=== PATIENT | female | born 1990 | race Caucasian/White ===

== ENCOUNTER → 2017-10-09 | Outpatient (CLI) | payer OTHER | LOC: HPND 09:18 | DX: O43.892 Other placental disorders, second trimester (principal); O09.32 Supervision of pregnancy with insufficient antenatal care, second trimester; O34.211 Maternal care for low transverse scar from previous cesarean delivery; O44.42 Low lying placenta NOS or without hemorrhage, second trimester | CPT/HCPCS: 76805 ==

== ENCOUNTER → 2017-11-21 | Outpatient (CLI) | payer OTHER | LOC: HPND 12:11 | PROVIDERS: ATTEND Obstetrics & Gynecology | DX: Z36.2 Encounter for other antenatal screening follow-up (principal); O09.32 Supervision of pregnancy with insufficient antenatal care, second trimester; O44.42 Low lying placenta NOS or without hemorrhage, second trimester | CPT/HCPCS: 76816 ==

== ENCOUNTER 2017-12-12 09:10 | Inpatient (IN) ==
[2017-12-12] MEDS ORDERED: Mag Sulf/Water 4 gm/100 ml 100 ML IV.SIG ONE ×2 (09:54→10:38)
[2017-12-12] MEDS ORDERED: ceFAZolin Inj 2,000 MG in Sodium Chlor 0.9% Inj 80 ML IV.SIG ONE (09:54)
[2017-12-12] MEDS ORDERED: Acetaminophen 325 MG Tablet PO PRN (09:54)
[2017-12-12] MEDS ORDERED: Mag Sulf/Water 40 gm/1000 ml 40 GM/1,000 ML BAG IV.CONT SCH (10:00)
[2017-12-12 10:37] LABS: Baso % (Auto) 0.2 % (0.0-2.0); Eos # (Auto) 0.1 th/mm3 (0.0-0.4); Eos % (Auto) 0.6 % (0.0-4.0); Hematocrit 30.2 % (35.0-46.0); Hemoglobin 10.4 gm/dL (11.6-15.3); Lymph # (Auto) 1.8 th/mm3 (1.0-4.8); Lymph % (Auto) 11.9 % (9.0-44.0); Mean Corpuscular HGB Conc 34.3 % (32.0-36.0); Mean Corpuscular Hemoglobin 32.1 pg (27.0-34.0); Mean Corpuscular Volume 93.7 fL (80.0-100.0); Mean Platelet Volume 8.7 fL (7.0-11.0); Mono # (Auto) 0.8 th/mm3 (0.0-0.9); Mono % (Auto) 5.4 % (0.0-8.0); Neut # (Auto) 12.4 th/mm3 (1.8-7.7); Neut % (Auto) 81.9 % (16.0-70.0); Platelet Count 180 th/mm3 (150-450); Red Blood Count 3.22 mil/mm3 (4.00-5.30); Red Cell Distribution Width 12.8 % (11.6-17.2); White Blood Count 15.1 th/mm3 (4.0-11.0)
[2017-12-12] MEDS ORDERED: Mag Sulf/Water 40 gm/1000 ml 40 GM/1,000 ML BAG IV.CONT ONE (10:38)
--- NOTE | 2017-12-12 10:38 | ED ---
History of Present Illness Primary Care Physician: UNKNOWN Chief Complaint: vaginal bleeding History of Present Illness: Ms Carrera is a 27 YO followed by [facility] with Hx of 1 2007, 1 ectopic s/p left salpingoophorectomy 2010, and 1 presents at 28/2 weeks with vaginal bleeding since this morning. Pt reports painless bleeding started about 7AM and is about the same as a period without gush of fluid and good movement. There is no report of trauma; last sexual intercourse 2 days ago. Pt reports no complications with this . OB US on 11/20 indicates breech lie with no previa but that posterior grade 1 placenta which was previously low lying had resolved. Denies CP, SOB, N/V/D, cramping and DVT pain. Weeks Gestation:: 28 Para: 1 : 4 Total # of Abortions (Spontaneous & Elective): 1 - Inpatient Certification If this patient has been admitted as an Inpatient: I certify that the inpatient services were ordered in accordance with Medicare regulations governing the order. This includes certification that hospital inpatient services are reasonable and necessary and in the case of services not specified as inpatient-only under 42 CFR 419.22(n), that they are appropriately provided as inpatient services in accordance to with the 2-midnight benchmark under 43 CFR 412.3(e) Estimated Total Length of Stay (Days): 2 Plans for Post Hospital Care: Home Review of Systems Constitutional: Denies chills, Denies fever(s) Eyes: Denies change in vision Cardiovascular: Denies chest pain, Denies shortness of breath with activity Respiratory: Denies shortness of breath Gastrointestinal: Denies abdominal pain, Denies loose stools, Denies nausea, Denies vomiting Genitourinary: Reports abnormal vaginal bleeding (since approx 7AM), Denies vaginal discharge Musculoskeletal: Reports back pain (mild) Skin/Breast: Denies lesions, Denies rash PMFSH - Medical / Surgical Hx Neg / Unobtainable Medical Problems Denied: Yes - Medical History Medical History: Medical History (Last Updated 12/12/17 @ 10:23 by Oni Schwarz III, MD, R1) delivery delivered - Surgical History Surgical History: Surgical History (Last Updated 12/12/17 @ 10:22 by Oni Schwarz III, MD, R1) History of salpingoophorectomy - Family History Family History: Family History (Last Updated 12/12/17 @ 10:23 by Oni Schwarz III, MD, R1) Other Diabetes - Tobacco History Second Hand Smoke Exposure: No Tobacco Use In Past 30 Days: No Smoking Status: Unknown if ever smoked - Alcohol History How Often Do You Have a Drink Containing Alcohol: Never - Substance Use History Substance History: No History of Abuse - Travel History History of Recent Travel: No Recent Travel in the [place] Within the Last 8 Weeks: No Recent Travel Out of the Country Within the Last 8 Weeks: No Medications and Allergies Active Medications: Active Medications Acetaminophen (Tylenol) 650 mg PO Q4H PRN PRN Reason: PAIN SCALE 1 TO 10 Betamethasone Acet/Betameth SodPhos (Celestone Soluspan Inj) 12 mg IM Q24H ANTHONY Stop: 12/13/17 10:01 Calcium Gluconate (Calcium Gluconate Inj) 1 gm IV.PUSH ONCE PRN PRN Reason: Magnesium Toxicity Cefazolin Sodium 2,000 mg/ (Sodium Chloride) 100 mls @ 200 mls/hr IV.SIG ONCE ONE Stop: 12/12/17 10:23 Lactated Ringer's (Lr 1000 Ml Inj) 1,000 mls @ 125 mls/hr IV.CONT .Q8H ANTHONY Magnesium Sulfate (Magnesium Sulfate/Water 4 Gm/100 Ml Premix) 100 mls @ 300 mls/hr IV.SIG ONCE ONE Stop: 12/12/17 10:13 Magnesium Sulfate (Magnesium Sulfate/Water 40 Gm/1000 Ml Premix) 40 gm in 1, 000 mls @ 50 mls/hr IV.CONT Q24H ANTHONY Sodium Chloride (Ns Flush) 2 ml IV.FLUSH BID ANTHONY Sodium Chloride (Ns Flush) 2 ml IV.FLUSH PRN PRN PRN Reason: FLUSH AFTER USING IV ACCESS Allergies Allergy/AdvReac Type Severity Reaction Status Date / Time No Known Allergies Allergy Uncoded 05/28/16 04:26 Home Medications Medication Instructions Recorded Confirmed Type No Known Home Medications 12/12/17 12/12/17 History Exam Vital signs: Vital Signs 12/12/17 09:35 Temperature 98.7 F Pulse Rate 109 H Respiratory Rate 18 Blood Pressure 108/74 Intake & Output 12/11/17 12/12/17 12/12/17 18:59 06:59 18:59 Weight 124 kg Narrative: GENERAL: Well-nourished, well-developed patient. SKIN: Warm and dry. HEAD: Normocephalic and atraumatic. EYES: No scleral icterus. No injection or drainage. ENT: No nasal drainage noted. Mucous membranes pink. Airway patent. Poor dentition. NECK: Supple, trachea midline. No JVD. CARDIOVASCULAR: Regular rate and rhythm without murmurs, gallops, or rubs. RESPIRATORY: Breath sounds equal bilaterally. No accessory muscle use. ABDOMEN/GI: Abdomen soft, non-tender, bowel sounds present, no rebound, no guarding Gravid to 28 weeks size GENITOURINARY: External Genitalia: intact and normal in appearance. There is dried blood around the pt's vagina and anus. Internal genitalia: cervix is high and anterior with cervix fingertip open and oozing blood; there is blood in the vaginal vault. Cervix: open Dilatation: fingertip Effacement: - Station: - Presentation: - Membranes: intact Uterine Contractions: absent FHT's: Category: 1 Baseline: 135 Reactive: yes Variability: moderate Decels: absent EXTREMITIES: No cyanosis or edema. BACK: Nontender without obvious deformity. No CVA tenderness. NEUROLOGICAL: Awake and alert. Motor and sensory grossly within normal limits. Five out of 5 muscle strength in all muscle groups. Normal speech. Assessment and Plan - Diagnosis (1) Third trimester bleeding, antepartum Code(s): O46.93 - Antepartum hemorrhage, unspecified, third trimester Status: Acute Plan: 27 YO followed by CFW with Hx of 1 2007, 1 ectopic s/p left salpingoophorectomy 2010, and 1 presents at 28/2 weeks with vaginal bleeding since this morning. Concern for possible abruption vs cervical incompetence. Admit for observation overnight. PLAN: -Labs: CBC, Coag profile, UA -OB US stat -Mag sulfate per protocol -Ancef IV 2g -Betamethasone 12mg IM q24h x2 doses -LR IVF -PRN tylenol, zofran Pt SDW Nina Vargas and Geo Discharge Plan - Discharge Disposition Patient Disposition: 02 Transfer To [facility] [place] - Discharge Condition Condition: Stable - Physicians Team Primary Care Provider: UNKNOWN, Attending Provider: Liza Carl
[2017-12-12 11:07] LABS: Amphetamine Urine With Conf Neg (Neg); Benzodiazepine Urine With Conf Neg (Neg)
[2017-12-12] MEDS: Betamethasone Sod Phos/Acetate Inj 30 MG/5 ML Vial IM SCH (11:10)
[2017-12-12] MEDS ORDERED: ceFAZolin 2 GM Premix Inj 2 GM/100 ML BAG IV.SIG ONE (12:00)
[2017-12-12 13:18] LABS: Amphetamine Urine With Conf Neg (Neg); Benzodiazepine Urine With Conf Neg (Neg)
[2017-12-12 13:20] LABS: INR 0.9 Ratio; Prothrombin Time 9.2 sec (9.8-11.6)
[2017-12-12 16:22] LABS: Hematocrit 30.1 % (35.0-46.0)
--- NOTE | 2017-12-12 18:25 | P.HPOB ---
Chief Complaint: vaginal bleeding History of Present Illness: Ms Carrera is a 27 YO followed by CFW with Hx of 1 2007, 1 ectopic s/p left salpingoophorectomy 2010, and 1 presents at 28/2 weeks with vaginal bleeding since this morning. Pt reports painless bleeding started about 7AM and is about the same as a period without gush of fluid and good movement. There is no report of trauma; last sexual intercourse 2 days ago. Pt reports no complications with this . OB US on 11/20 indicates breech lie with no previa but that posterior grade 1 placenta which was previously low lying had resolved. Denies CP, SOB, N/V/D, cramping and DVT pain. Weeks Gestation:: 28 Para: 1 : 4 Total # of Abortions (Spontaneous & Elective): 1 - Inpatient Certification If this patient has been admitted as an Inpatient: I certify that the inpatient services were ordered in accordance with Medicare regulations governing the order. This includes certification that hospital inpatient services are reasonable and necessary and in the case of services not specified as inpatient-only under 42 CFR 419.22(n), that they are appropriately provided as inpatient services in accordance to with the 2-midnight benchmark under 43 CFR 412.3(e) Estimated Total Length of Stay (Days): 2 Plans for Post Hospital Care: Home Review of Systems Constitutional: Denies chills, Denies fever(s) Eyes: Denies change in vision Cardiovascular: Denies chest pain, Denies shortness of breath with activity Respiratory: Denies shortness of breath Gastrointestinal: Denies abdominal pain, Denies loose stools, Denies nausea, Denies vomiting Genitourinary: Reports abnormal vaginal bleeding (since approx 7AM), Denies vaginal discharge Musculoskeletal: Reports back pain (mild) Skin/Breast: Denies lesions, Denies rash PMFSH - Medical / Surgical Hx Neg / Unobtainable Medical Problems Denied: Yes - Medical History Medical History: Medical History (Last Updated 12/12/17 @ 10:23 by Oni Schwarz III, MD, R1) delivery delivered - Surgical History Surgical History: Surgical History (Last Updated 12/12/17 @ 10:22 by Oni Schwarz III, MD, R1) History of salpingoophorectomy - Family History Family History: Family History (Last Updated 12/12/17 @ 10:23 by Oni Schwarz III, MD, R1) Other Diabetes - Tobacco History Second Hand Smoke Exposure: No Tobacco Use In Past 30 Days: No Smoking Status: Unknown if ever smoked - Alcohol History How Often Do You Have a Drink Containing Alcohol: Never - Substance Use History Substance History: No History of Abuse - Travel History History of Recent Travel: No Recent Travel in the [place] Within the Last 8 Weeks: No Recent Travel Out of the Country Within the Last 8 Weeks: No Medications and Allergies Active Medications: Active Medications Acetaminophen (Tylenol) 650 mg PO Q4H PRN PRN Reason: PAIN SCALE 1 TO 10 Betamethasone Acet/Betameth SodPhos (Celestone Soluspan Inj) 12 mg IM Q24H ANTHONY Stop: 12/13/17 10:01 Calcium Gluconate (Calcium Gluconate Inj) 1 gm IV.PUSH ONCE PRN PRN Reason: Magnesium Toxicity Cefazolin Sodium 2,000 mg/ (Sodium Chloride) 100 mls @ 200 mls/hr IV.SIG ONCE ONE Stop: 12/12/17 10:23 Lactated Ringer's (Lr 1000 Ml Inj) 1,000 mls @ 125 mls/hr IV.CONT .Q8H ANTHONY Magnesium Sulfate (Magnesium Sulfate/Water 4 Gm/100 Ml Premix) 100 mls @ 300 mls/hr IV.SIG ONCE ONE Stop: 12/12/17 10:13 Magnesium Sulfate (Magnesium Sulfate/Water 40 Gm/1000 Ml Premix) 40 gm in 1, 000 mls @ 50 mls/hr IV.CONT Q24H ANTHONY Sodium Chloride (Ns Flush) 2 ml IV.FLUSH BID ANTHONY Sodium Chloride (Ns Flush) 2 ml IV.FLUSH PRN PRN PRN Reason: FLUSH AFTER USING IV ACCESS Allergies Allergy/AdvReac Type Severity Reaction Status Date / Time No Known Allergies Allergy Uncoded 05/28/16 04:26 Home Medications Medication Instructions Recorded Confirmed Type No Known Home Medications 12/12/17 12/12/17 History Exam Vital signs: Vital Signs 12/12/17 09:35 Temperature 98.7 F Pulse Rate 109 H Respiratory Rate 18 Blood Pressure 108/74 Intake & Output 12/11/17 12/12/17 12/12/17 18:59 06:59 18:59 Weight 124 kg Narrative: GENERAL: Well-nourished, well-developed patient. SKIN: Warm and dry. HEAD: Normocephalic and atraumatic. EYES: No scleral icterus. No injection or drainage. ENT: No nasal drainage noted. Mucous membranes pink. Airway patent. Poor dentition. NECK: Supple, trachea midline. No JVD. CARDIOVASCULAR: Regular rate and rhythm without murmurs, gallops, or rubs. RESPIRATORY: Breath sounds equal bilaterally. No accessory muscle use. ABDOMEN/GI: Abdomen soft, non-tender, bowel sounds present, no rebound, no guarding Gravid to 28 weeks size GENITOURINARY: External Genitalia: intact and normal in appearance. There is dried blood around the pt's vagina and anus. Internal genitalia: cervix is high and anterior with cervix fingertip open and oozing blood; there is blood in the vaginal vault. Cervix: open Dilatation: fingertip Effacement: - Station: - Presentation: - Membranes: intact Uterine Contractions: absent FHT's: Category: 1 Baseline: 135 Reactive: yes Variability: moderate Decels: absent EXTREMITIES: No cyanosis or edema. BACK: Nontender without obvious deformity. No CVA tenderness. NEUROLOGICAL: Awake and alert. Motor and sensory grossly within normal limits. Five out of 5 muscle strength in all muscle groups. Normal speech. Assessment and Plan - Diagnosis (1) Third trimester bleeding, antepartum Code(s): O46.93 - Antepartum hemorrhage, unspecified, third trimester Status: Acute Plan: 27 YO followed by CFW with Hx of 1 2007, 1 ectopic s/p left salpingoophorectomy 2010, and 1 presents at 28/2 weeks with vaginal bleeding since this morning. Concern for possible abruption vs cervical incompetence. Admit for observation overnight. PLAN: -Labs: CBC, Coag profile, UA -OB US stat -Mag sulfate per protocol -Ancef IV 2g -Betamethasone 12mg IM q24h x2 doses -LR IVF -PRN tylenol, zofran Pt SDW Nina Vargas and Geo Martinez personally saw and examined patient and participated in all patel decision making. Will admit for vaginal bleeding at 29 weeks and administer magnesium sulfate for neuroprotection and betamethasone for lung maturity. Will obtain ob ultrasound. Discussed risks of delivery, possible need for blood transfusion, risks and indications for delivery. SMS
--- NOTE | 2017-12-13 10:00 | P.OBANTE ---
Subjective Interval History: Ms. Carrera is a 27yo at 30/08 here for vaginal bleeding, she has been given ancef 2g, Mg overnight, and betamethasone. She reports no further bleeding overnight. She admitted to nursing staff that she did have sexual intercourse prior to the bleeding though she denied this on intake. She has a ferguson in place. The baby has been moving well. She has not had a loss of fluid. She denies nausea, vomiting, chest pain, difficulty breathing, dizziness, or calf pain. She is a patient at [facility] [place]. Objective Vital Signs and I&O: Vital Signs 12/12/17 11:20 12/12/17 11:25 12/12/17 11:30 Temperature 98.2 F 98.2 F Pulse Rate 100 H 106 H Respiratory Rate Blood Pressure 102/64 12/12/17 11:35 12/12/17 11:40 12/12/17 11:45 Temperature Pulse Rate 105 H 104 H 119 H Respiratory Rate 12 Blood Pressure 97/51 L 121/42 L 12/12/17 11:55 12/12/17 12:00 12/12/17 12:15 Temperature Pulse Rate 120 H 106 H 103 H Respiratory Rate Blood Pressure 99/54 L 103/59 L 12/12/17 12:20 12/12/17 12:25 12/12/17 12:35 Temperature Pulse Rate 100 H 100 H 103 H Respiratory Rate 12 Blood Pressure 12/12/17 12:55 12/12/17 13:10 12/12/17 13:20 Temperature Pulse Rate 102 H 106 H 106 H Respiratory Rate Blood Pressure 98/56 L 12/12/17 13:23 12/12/17 13:24 12/12/17 13:25 Temperature Pulse Rate 104 H 103 H Respiratory Rate 12 Blood Pressure 100/57 L 12/12/17 13:30 12/12/17 13:40 12/12/17 14:05 Temperature 98.4 F Pulse Rate 100 H 102 H 104 H Respiratory Rate Blood Pressure 85/41 L 12/12/17 14:10 12/12/17 14:11 12/12/17 14:15 Temperature Pulse Rate 101 H 102 H 103 H Respiratory Rate 12 Blood Pressure 84/38 L 99/55 L 12/12/17 14:20 12/12/17 14:25 12/12/17 14:30 Temperature Pulse Rate 105 H 104 H 100 H Respiratory Rate Blood Pressure 12/12/17 15:06 12/12/17 15:10 12/12/17 15:25 Temperature Pulse Rate 99 H 101 H 101 H Respiratory Rate Blood Pressure 85/45 L 12/12/17 15:29 12/12/17 15:30 12/12/17 15:40 Temperature 98.6 F Pulse Rate 100 H 103 H Respiratory Rate 14 Blood Pressure 90/53 L 12/12/17 15:50 12/12/17 16:29 12/12/17 17:25 Temperature Pulse Rate 101 H 101 H 98 H Respiratory Rate 12 Blood Pressure 91/51 L 12/12/17 17:28 12/12/17 17:30 12/12/17 18:35 Temperature Pulse Rate 102 H 104 H 105 H Respiratory Rate 13 16 Blood Pressure 97/59 L 12/12/17 18:39 12/12/17 18:40 12/12/17 18:43 Temperature 98.1 F Pulse Rate 104 H 105 H Respiratory Rate Blood Pressure 90/39 L 91/56 L 12/12/17 18:50 12/12/17 18:55 12/12/17 19:20 Temperature Pulse Rate 106 H 105 H 106 H Respiratory Rate Blood Pressure 12/12/17 20:17 12/12/17 20:25 12/12/17 20:55 Temperature Pulse Rate 102 H 104 H 90 Respiratory Rate 16 Blood Pressure 84/55 L 91/54 L 12/12/17 21:23 12/12/17 21:55 12/12/17 22:00 Temperature 98.2 F Pulse Rate 86 Respiratory Rate 18 Blood Pressure 84/46 L 12/12/17 23:55 12/13/17 01:14 12/13/17 01:55 Temperature Pulse Rate 88 87 91 H Respiratory Rate 18 Blood Pressure 86/43 L 81/42 L 12/13/17 03:00 12/13/17 03:55 12/13/17 05:34 Temperature Pulse Rate 87 87 95 H Respiratory Rate 16 16 Blood Pressure 92/49 L 85/43 L 12/13/17 05:55 12/13/17 06:04 12/13/17 06:52 Temperature 97.9 F Pulse Rate 88 Respiratory Rate 18 Blood Pressure 82/41 L 12/13/17 07:00 12/13/17 08:00 12/13/17 09:25 Temperature Pulse Rate 95 H 94 H Respiratory Rate Blood Pressure 87/50 L 99/38 L 78/37 L Intake & Output 12/12/17 12/13/17 12/13/17 18:59 06:59 18:59 Intake Total 125 / 125 Balance 125 / 125 Weight 124 kg Intake: IV 125 / 125 LR 1000 mL Inj 1,000 ML @ 125 125 / 125 mls/hr IV.CONT .Q8H [facility] Rx#: [id number] Lab and Micro Results: Laboratory Results - last 24 hr 12/12/17 12/12/17 12/12/17 10:05 10:05 10:05 WBC 15.1 H RBC 3.22 L Hgb 10.4 L Hct 30.2 L MCV 93.7 MCH 32.1 MCHC 34.3 RDW 12.8 Plt Count 180 MPV 8.7 Neut % (Auto) 81.9 H Lymph % (Auto) 11.9 Franklin % (Auto) 5.4 Eos % (Auto) 0.6 Baso % (Auto) 0.2 Neut # (Auto) 12.4 H Lymph # (Auto) 1.8 Franklin # (Auto) 0.8 Eos # (Auto) 0.1 Baso # (Auto) 0.0 WBC Differential . Differential Comment Auto diff final PT INR APTT Urine Opiates Screen Neg Ur Barbiturates Screen Neg Ur Amphetamine Screen Neg U Benzodiazepines Scrn Neg Urine Cocaine Screen Neg U Cannabinoids Screen Neg Blood Type AB Positive Blood Type Recheck Not needed Antibody Screen Negative 12/12/17 12/12/17 12/12/17 12:20 12:56 12:56 WBC RBC Hgb Hct MCV MCH MCHC RDW Plt Count MPV Neut % (Auto) Lymph % (Auto) Franklin % (Auto) Eos % (Auto) Baso % (Auto) Neut # (Auto) Lymph # (Auto) Franklin # (Auto) Eos # (Auto) Baso # (Auto) WBC Differential Differential Comment PT 9.2 L INR 0.9 APTT 22.2 L Urine Opiates Screen Neg Ur Barbiturates Screen Neg Ur Amphetamine Screen Neg U Benzodiazepines Scrn Neg Urine Cocaine Screen Neg U Cannabinoids Screen Neg Blood Type Blood Type Recheck Antibody Screen 12/12/17 15:55 WBC RBC Hgb 10.0 L Hct 30.1 L MCV MCH MCHC RDW Plt Count MPV Neut % (Auto) Lymph % (Auto) Franklin % (Auto) Eos % (Auto) Baso % (Auto) Neut # (Auto) Lymph # (Auto) Franklin # (Auto) Eos # (Auto) Baso # (Auto) WBC Differential Differential Comment PT INR APTT Urine Opiates Screen Ur Barbiturates Screen Ur Amphetamine Screen U Benzodiazepines Scrn Urine Cocaine Screen U Cannabinoids Screen Blood Type Blood Type Recheck Antibody Screen Physical Exam: GENERAL: Well-nourished, well-developed patient. CARDIOVASCULAR: Regular rate and rhythm without murmurs, gallops, or rubs. RESPIRATORY: Breath sounds equal bilaterally. No accessory muscle use. ABDOMEN/GI: Abdomen gravid, non-tender. GENITOURINARY: External Genitalia: No further blood noted on external examination. Pelvic exam deferred FHT's: Baseline: 130 Reactive: yes Variability: moderate Decels: absent No contractions on external tocometer noted. EXTREMITIES: Trace edema bilaterally, non pitting. No cyanosis, non-tender, without signs of DVT. 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 No further bleeding o/n. Tocometer negative for contractions. O/n the patient admitted to nursing staff that she had sexual intercourse just prior to the bleeding. -Labs: CBC, Coag profile, UA all WNL -OB US revealed cervical length of 34mm, no evidence of retroplacental or subchorionic hematoma, placenta intact -Mg sulfate started yesterday 11:19, to be stopped today after 24 hours total -Ancef IV 2g, 1 dose given. -Betamethasone 12mg IM q24h x2 doses, given -LR IVF 75mL/hr running. -PRN tylenol, zofran -BP low o/n and this morning- most recently 82/41. Likely contributing factor of Mg drip. Patient denies dizziness, active bleeding. Will repeat H/H this morning to ensure no further drop. Patient counselled that she is to be on strict pelvic rest until she is cleared by her OB. Will f[facility]u at [facility] Consider d/c today Pt SDW Nina Carl and Chong - Attending Attestation I personally saw and evaluated patient and participate in all patel decision making. Continue routine antepartum care. Patient now reports intercourse prior to onset of bleeding (previously denied), bleeding may be related to recent intercourse. heart tones reassuring. Bleeding precautions. SMS
[2017-12-13 10:37] LABS: Hematocrit 26.2 % (35.0-46.0); Hemoglobin 8.8 gm/dL (11.6-15.3)
[2017-12-13] MEDS: Betamethasone Sod Phos/Acetate Inj 30 MG/5 ML Vial IM SCH (11:13)
== END 2017-12-13 14:02 | disposition home or self-care (01) ==
LOC: H2E 09:10 → HOBED 09:10 → INTOOBSV 09:54 → OBSVTOIN 09:54 → H2E 10:33
PROVIDERS: ADMIT Obstetrics & Gynecology; ATTEND Obstetrics & Gynecology
DX: O34.219 Maternal care for unspecified type scar from previous cesarean delivery; K08.9 Disorder of teeth and supporting structures, unspecified; O46.93 Antepartum hemorrhage, unspecified, third trimester; Z83.3 Family history of diabetes mellitus; Z3A.28 28 weeks gestation of pregnancy

== ENCOUNTER 2018-02-19 20:03 | Inpatient (IN) ==
[2018-02-19] MEDS ORDERED: Citric Acid/Sodium Citrate Liq 30 ML UDC PO SCH (20:45)
[2018-02-19] MEDS ORDERED: Naloxone Inj 0.4 MG/ML Vial IV.PUSH PRN (20:45)
[2018-02-19] MEDS ORDERED: ceFAZolin Inj 2,000 MG in Sodium Chlor 0.9% Inj 80 ML IV.SIG SCH (21:00)
[2018-02-19] MEDS ORDERED: Oxytocin 30 Units/500ml Premix 30 UNITS/500 ML BAG IV.SIG ONE (21:00)
--- NOTE | 2018-02-19 21:00 | P.HPOB ---
History of Present Illness Service: P[facility] from [facility] Primary Care Physician: NOT REQUIRED Chief Complaint: Leakage of fluid History of Present Illness: 27-year-old at 38 weeks and 1 day. Presents complaining of leakage of fluid. [facility] Previous section desires repeat declines tubal sterilization. Weeks Gestation:: 38 Para: 1 : 3 Review of Systems GENERAL: Well-nourished, well-developed patient. SKIN: Warm and dry. HEAD: Normocephalic and atraumatic. EYES: No scleral icterus. No injection or drainage. ENT: No nasal drainage noted. Mucous membranes pink. Airway patent. NECK: Supple, trachea midline. No JVD. CARDIOVASCULAR: Regular rate and rhythm without murmurs, gallops, or rubs. RESPIRATORY: Breath sounds equal bilaterally. No accessory muscle use. BREASTS: Bilateral exam showed no masses , no retractions, no nipple discharge. ABDOMEN/GI: Abdomen soft, non-tender, bowel sounds present, no rebound, no guarding Gravid to 38 weeks weeks size Fundal Height: Consistent with fundal height GENITOURINARY: External Genitalia: intact and normal in appearance BUS glands: Unremarkable Cervix: Dilated Dilatation: 2 cm Effacement: 80% Station: -1 Presentation: Vertex to palpation Membranes: ruptured clear fluid Uterine Contractions: Minimal FHT's: Category: 1 Baseline: 140 Reactive: Yes Variability: Moderate Decels: None EXTREMITIES: No cyanosis or edema. BACK: Nontender without obvious deformity. No CVA tenderness. NEUROLOGICAL: Awake and alert. Motor and sensory grossly within normal limits. Five out of 5 muscle strength in all muscle groups. Normal speech. All other systems reviewed negative except as stated in HPI Genitourinary: Reports vaginal discharge (Complains of clear leakage of fluid from the vagina) PMFSH - Medical History Medical History: Medical History (Last Updated 02/09/18 @ 11:19 by Efrem Burroughs MD) delivery delivered Ectopic - Family History Family History: Family History (Last Updated 12/12/17 @ 10:23 by Oni Schwarz III, MD, R2) Father Diabetes - Tobacco History Second Hand Smoke Exposure: No Smoking Status: Current every day smoker (Reports smoke tobacco denies illicit drug) - Alcohol History How Often Do You Have a Drink Containing Alcohol: Never - Substance Use History Substance History: No History of Abuse - Travel History History of Recent Travel: No Medications and Allergies Allergies Allergy/AdvReac Type Severity Reaction Status Date / Time No Known Allergies Allergy Unverified 02/19/18 20:30 Home Medications Medication Instructions Recorded Confirmed Type [id number] fumarate-FA 1 tab PO DAILY 02/19/18 02/19/18 History [] Exam Vital signs: Vital Signs 02/19/18 20:21 02/19/18 20:22 02/19/18 20:30 Temperature 97.7 F Pulse Rate 111 H 101 H Respiratory Rate 15 Blood Pressure 96/65 L Intake & Output 02/19/18 02/19/18 02/20/18 06:59 18:59 06:59 Weight 59.874 kg - Constitutional no acute distress - Routine HEENT Exam Head: Present: normocephalic ENT: Present: mucous membranes moist - Routine Respiratory Exam Present: CTA bilaterally - Routine Cardiovascular Exam Present: RRR - Routine Neurological Exam Present: alert, oriented X3 Results - Labs Group B Strep: Negative Caprini VTE Risk Assessment Caprini VTE Risk Assessment: No/Low Risk (score <= 1) (Ambulating) Caprini Risk Assessment Model: Point Value = 1 Point Value = 2 Point Value = 3 Point Value = 5 Age 41-60 Minor surgery BMI > 25 kg/m2 Swollen legs Varicose veins or History of unexplained or recurrent spontaneous Oral contraceptives or hormone replacement Sepsis (< 1 month) Serious lung disease, including pneumonia (< 1 month) Abnormal pulmonary function Acute myocardial infarction Congestive heart failure (< 1 month) History of inflammatory bowel disease Medical patient at bed rest Age 61-74 Arthroscopic surgery Major open surgery (> 45 min) Laparoscopic surgery (> 45 min) Malignancy Confined to bed (> 72 hours) Immobilizing plaster cast Central venous access Age >= 75 History of VTE Family history of VTE Factor V Leiden Prothrombin [id number] Lupus anticoagulant Anticardiolipin antibodies Elevated serum homocysteine Heparin-induced thrombocytopenia Other congenital or acquired thrombophilia Stroke (< 1 month) Elective arthroplasty Hip, pelvis, or leg fracture Acute spinal cord injury (< 1 month) Prophylaxis Regimen: Total Risk Factor Score Risk Level Prophylaxis Regimen 0-1 Low Early ambulation 2 Moderate Order ONE of the following: *Sequential Compression Device (SCD) *Heparin 5000 units SQ BID 3-4 Higher Order ONE of the following medications: *Heparin 5000 units SQ TID *Enoxaparin/Lovenox 40 mg SQ daily (WT < 150 kg, CrCl > 30 mL/min) *Enoxaparin/Lovenox 30 mg SQ daily (WT < 150 kg, CrCl > 10-29 mL/min) *Enoxaparin/Lovenox 30 mg SQ BID (WT < 150 kg, CrCl > 30 mL/min) AND/OR *Sequential Compression Device (SCD) 5 or more Highest Order ONE of the following medications: *Heparin 5000 units SQ TID (Preferred with Epidurals) *Enoxaparin/Lovenox 40 mg SQ daily (WT < 150 kg, CrCl > 30 mL/min) *Enoxaparin/Lovenox 30 mg SQ daily (WT < 150 kg, CrCl > 10-29 mL/min) *Enoxaparin/Lovenox 30 mg SQ BID (WT < 150 kg, CrCl > 30 mL/min) AND *Sequential Compression Device (SCD) Assessment and Plan - Diagnosis (1) 38 weeks gestation of Code(s): Z3A.38 - 38 weeks gestation of Status: Acute (2) Previous section complicating , antepartum condition or complication Code(s): O34.219 - Maternal care for unspecified type scar from previous delivery Status: Acute (3) Spontaneous rupture of membranes Status: Acute
[2018-02-19] MEDS ORDERED: Morphine Sulfate PF Inj 5 MG/10 ML Ampul ONE (21:22)
--- NOTE | 2018-02-19 21:22 | P.HPOB ---
History of Present Illness Primary Care Physician: NOT REQUIRED Chief Complaint: Leakage of fluid History of Present Illness: 27-year-old at 38 weeks and 1 day. Presents complaining of leakage of fluid[facility] Previous section desires repeat declines tubal sterilization. Weeks Gestation:: 38 PMFSH - Medical History Medical History: Medical History (Last Updated 02/09/18 @ 11:19 by Efrem Burroughs MD) delivery delivered Ectopic - Family History Family History: Family History (Last Updated 12/12/17 @ 10:23 by Oni Schwarz III, MD, R2) Father Diabetes - Tobacco History Second Hand Smoke Exposure: No Smoking Status: Current every day smoker (Reports smoke tobacco denies illicit drug) - Alcohol History How Often Do You Have a Drink Containing Alcohol: Never - Substance Use History Substance History: No History of Abuse - Travel History History of Recent Travel: No Medications and Allergies Active Medications: Active Medications Citric Acid/Sodium Citrate (Sodium Citrate/Citric Acid Liq) 30 ml PO DRIVER LICENSE TECHNICIAN ANTHONY Stop: 02/23/18 20:44 Diphtheria/Pertussis/Tetanus Vacc (Boostrix Vaccine Inj) 0.5 ml IM .ONCE ONE Stop: 02/20/18 16:01 Cefazolin Sodium 2,000 mg/ (Sodium Chloride) 100 mls @ 200 mls/hr IV.SIG DRIVER LICENSE TECHNICIAN [facility] Stop: 02/23/18 20:59 Lactated Ringer's (Lr 1000 Ml Inj) 1,000 mls @ 2,000 mls/hr IV.SIG .Q30M ONE Stop: 02/19/18 21:29 Lactated Ringer's (Lr 1000 Ml Inj) 1,000 mls @ 150 mls/hr IV.CONT .Q6H40M [facility] Lactated Ringer's (Lr 1000 Ml Inj) 1,000 mls @ 100 mls/hr IV.CONT .Q10H ANTHONY Stop: 02/20/18 21:44 Oxytocin (Pitocin 30 Units/Ns 500 Ml Premix) 30 units in 500 mls @ 100 mls/hr IV.SIG ONCE ONE Stop: 02/20/18 01:44 Oxytocin (Pitocin 30 Units/Ns 500 Ml Premix) 30 units in 500 mls @ 100 mls/hr IV.SIG UNSCH PRN PRN Reason: Heavy bleeding Measles/Mumps/Rubella Vaccine Live (M-M-R Ii Vaccine Inj) 0.5 ml SQ .ONCE ONE Stop: 02/20/18 16:01 Naloxone HCl (Narcan Inj) 0.4 mg IV.PUSH PRN PRN PRN Reason: Resp rate < 10 Oxycodone/Acetaminophen (Percocet 5/325 Mg) 2 tab PO Q4H PRN PRN Reason: PAIN SCALE 6 TO 10 Oxycodone/Acetaminophen (Percocet 5/325 Mg) 1 tab PO Q4H PRN PRN Reason: PAIN SCALE 3 TO 5 Sodium Chloride (Ns Flush) 2 ml IV.FLUSH BID ANTHONY Sodium Chloride (Ns Flush) 2 ml IV.FLUSH PRN PRN PRN Reason: FLUSH AFTER USING IV ACCESS Allergies Allergy/AdvReac Type Severity Reaction Status Date / Time No Known Allergies Allergy Unverified 02/19/18 20:30 Home Medications Medication Instructions Recorded Confirmed Type [id number] fumarate-FA 1 tab PO DAILY 02/19/18 02/19/18 History [] Exam Vital signs: Vital Signs 02/19/18 20:21 02/19/18 20:22 02/19/18 20:30 Temperature 97.7 F Pulse Rate 111 H 101 H Respiratory Rate 15 Blood Pressure 96/65 L Intake & Output 02/19/18 02/19/18 02/20/18 06:59 18:59 06:59 Weight 59.874 kg Results - Labs Group B Strep: Negative Caprini VTE Risk Assessment Caprini VTE Risk Assessment: No/Low Risk (score <= 1) (Ambulating) Caprini Risk Assessment Model: Point Value = 1 Point Value = 2 Point Value = 3 Point Value = 5 Age 41-60 Minor surgery BMI > 25 kg/m2 Swollen legs Varicose veins or History of unexplained or recurrent spontaneous Oral contraceptives or hormone replacement Sepsis (< 1 month) Serious lung disease, including pneumonia (< 1 month) Abnormal pulmonary function Acute myocardial infarction Congestive heart failure (< 1 month) History of inflammatory bowel disease Medical patient at bed rest Age 61-74 Arthroscopic surgery Major open surgery (> 45 min) Laparoscopic surgery (> 45 min) Malignancy Confined to bed (> 72 hours) Immobilizing plaster cast Central venous access Age >= 75 History of VTE Family history of VTE Factor V Leiden Prothrombin [id number] Lupus anticoagulant Anticardiolipin antibodies Elevated serum homocysteine Heparin-induced thrombocytopenia Other congenital or acquired thrombophilia Stroke (< 1 month) Elective arthroplasty Hip, pelvis, or leg fracture Acute spinal cord injury (< 1 month) Prophylaxis Regimen: Total Risk Factor Score Risk Level Prophylaxis Regimen 0-1 Low Early ambulation 2 Moderate Order ONE of the following: *Sequential Compression Device (SCD) *Heparin 5000 units SQ BID 3-4 Higher Order ONE of the following medications: *Heparin 5000 units SQ TID *Enoxaparin/Lovenox 40 mg SQ daily (WT < 150 kg, CrCl > 30 mL/min) *Enoxaparin/Lovenox 30 mg SQ daily (WT < 150 kg, CrCl > 10-29 mL/min) *Enoxaparin/Lovenox 30 mg SQ BID (WT < 150 kg, CrCl > 30 mL/min) AND/OR *Sequential Compression Device (SCD) 5 or more Highest Order ONE of the following medications: *Heparin 5000 units SQ TID (Preferred with Epidurals) *Enoxaparin/Lovenox 40 mg SQ daily (WT < 150 kg, CrCl > 30 mL/min) *Enoxaparin/Lovenox 30 mg SQ daily (WT < 150 kg, CrCl > 10-29 mL/min) *Enoxaparin/Lovenox 30 mg SQ BID (WT < 150 kg, CrCl > 30 mL/min) AND *Sequential Compression Device (SCD) Assessment and Plan - Diagnosis (1) 38 weeks gestation of Code(s): Z3A.38 - 38 weeks gestation of Status: Acute (2) Previous section complicating , antepartum condition or complication Code(s): O34.219 - Maternal care for unspecified type scar from previous delivery Status: Acute (3) Spontaneous rupture of membranes Status: Acute
[2018-02-19 21:25] LABS: Bacteria,Urine Rare /hpf; Bilirubin,Urine Negative (Negative); Clarity,Urine Hazy (Clear); Color,Urine Straw (Yellw/Straw); Glucose,Urine (UA) Negative (Negative); Leukocyte Esterase,Urine Moderate (Negative); Nitrite,Urine Negative (Negative); Specific Gravity,Urine 1.008 (1.002-1.035); Squamous Epithelial Cell,Urine 7 /hpf (0-5)
[2018-02-19 21:27] LABS: Baso # (Auto) 0.1 th/mm3 (0.0-0.2); Baso % (Auto) 0.6 % (0.0-2.0); Eos # (Auto) 0.1 th/mm3 (0.0-0.4); Eos % (Auto) 0.3 % (0.0-4.0); Hematocrit 33.1 % (35.0-46.0); Hemoglobin 10.8 gm/dL (11.6-15.3); Lymph # (Auto) 2.9 th/mm3 (1.0-4.8); Lymph % (Auto) 17.6 % (9.0-44.0); Mean Corpuscular HGB Conc 32.5 % (32.0-36.0); Mean Corpuscular Hemoglobin 29.5 pg (27.0-34.0); Mean Corpuscular Volume 90.6 fL (80.0-100.0); Mean Platelet Volume 9.2 fL (7.0-11.0); Mono % (Auto) 6.1 % (0.0-8.0); Neut # (Auto) 12.5 th/mm3 (1.8-7.7); Neut % (Auto) 75.4 % (16.0-70.0); Platelet Count 242 th/mm3 (150-450); Red Blood Count 3.65 mil/mm3 (4.00-5.30); Red Cell Distribution Width 12.8 % (11.6-17.2); White Blood Count 16.6 th/mm3 (4.0-11.0)
[2018-02-19] MEDS ORDERED: Phenylephrine/NS 1000 MCG/10ML Syringe IV.PUSH ONE (21:27)
[2018-02-19 21:30] LABS: Amphetamine Screen,Urine Neg (Neg); Barbiturate Screen,Urine Neg (Neg); Cannabinoid Screen,Urine Neg (Neg); Cocaine Screen,Urine Neg (Neg)
[2018-02-19 21:31] LABS: Opiate Screen,Urine Neg (Neg)
--- NOTE | 2018-02-19 23:17 | P.OP ---
- Preoperative Diagnosis (1) 38 weeks gestation of (2) Previous section complicating , antepartum condition or complication (3) Spontaneous rupture of membranes - Postoperative Diagnosis (1) 38 weeks gestation of (2) Previous section complicating , antepartum condition or complication (3) Spontaneous rupture of membranes Date of procedure: 02/19/18 Procedure: Repeat lower uterine transverse section incision and drainage of purulent inclusion cyst Anesthesia: spinal Surgeon: Corie Gavin MD Glass Blowing Instructor: PGY 1 Dr. Roiso Powell Pathology: other (Aerobic and anaerobic cultures sent of inclusion cyst) Operation and Findings: Patient was counseled on alternatives benefits complications. Complications including but not limited to risk of injury to the bowel bladder nerves blood vessels or ureters any structures in the abdomen or pelvis including the fetus. Risk of infection hemorrhage reoperation risk. Anesthesia related risks. Patient expressed verbal understanding. Subsequently taken to the OR where she was placed under spinal analgesia which was found to be adequate. Note proper site as well as patient identified. Preop IV antibiotics were given. Subsequently with a #11 blade incision was made through the previous incision carried down to the underlying layer of fascia which was incised in the midline and dissected laterally sharply with a second blade. Subsequently the rectus muscle was bluntly blunt entrance into the peritoneum with care to avoid the bladder. The vesicouterine peritoneum was identified bladder flap was created sharply. Bladder blade was subsequently repositioned. Incision on the lower uterine segment sharply transverse fashion extended laterally digitally. vertex was subsequently delivered without incident nares and mouth were bulb suctioned reduction of cord 1. Of note the cord was noted to be thin absent Richmond's jelly. The remainder of the body was delivered without incident a viable infant female delivered at 2151 weight 2755 g. Apgars 8 9. The placenta was manually removed. The the uterus was externalized and cleared of all clot and debris uterine incision was identified with T clamps and subsequently closed in with 1 chromic in a running locked fashion followed by second imbricating Lembert suture. Until noted to be closed. Good hemostasis was noted however to the patient's left there was a small window noted within the peritoneum which was reapproximated with 1 chromic and using the round ligament to buttress the affected area. Note to the patient's right there was an inclusion cyst which was incised and drained on the field approximately 50 cc of non-foul smelling purulent liquid noted. Aerobic and anaerobic cultures performed. Copious irrigation performed. Proceeded to evaluate the rest of the abdominal pelvic cavity no obvious pathology noted the paracolic gutters were cleared of all clot and debris. Note the patient's left tube + fimbria was obliterated consistent previous ectopic the right tube and ovary within normal limits. Once hemostasis was assured and the uterine incision was closed. The uterus was repositioned and the pelvic abdominal cavity. Repeat inspection good hemostasis noted decision to close the fascia which was subsequently closed with 1 PDS. Copious irrigation of the subcutaneous fat followed by closure of the skin with china. Patient tolerated procedure well sponge lap needle counts were noted to be correct 2 patient taken to recovery room in stable condition. Mother and baby in stable condition. Cultures obtained pending. Antibiotics 2 additional doses ordered.
[2018-02-20] MEDS ORDERED: Naloxone Inj 0.4 MG/ML Vial IV.PUSH PRN (01:12)
[2018-02-20] MEDS ORDERED: Oxytocin 30 Units/500ml Premix 30 UNITS/500 ML BAG IV.SIG PRN (01:45)
[2018-02-20] MEDS ORDERED: ceFAZolin 2 GM Premix Inj 2 GM/50 ML PIGGYBACK IV.SIG SCH (06:00)
[2018-02-20] MEDS: ceFAZolin Inj 2,000 MG in Sodium Chlor 0.9% Inj 80 ML IV.SIG SCH ×2 (06:02→14:05)
--- NOTE | 2018-02-20 08:36 | P.PNOB ---
Subjective Post op day: 1 Interval history: Patient is a 27-year-old delivered at 38 weeks and 1 day. Patient is day 1 after repeat c/s. Patient's pain is well-controlled. Patient reports minimal bleeding. Patient reports eating and drinking with minimal nausea and some vomiting, which she associates with taking pain medication. Patient has passed gas but has not had a bowel movement. Patient denies chest pain and shortness of breath. Patient has been ambulating; she denies lower extremity pain. Patient reports desire for contraception, which she will discuss with her PCP at her first follow-up visit. Patient has decided to bottle-feed. Objective Vital Signs/I&O: Vital Signs 02/19/18 20:21 02/19/18 20:22 02/19/18 20:30 Temperature 97.7 F Pulse Rate 111 H 101 H Respiratory Rate 15 Blood Pressure 96/65 L 02/19/18 22:35 02/19/18 22:50 02/19/18 23:03 Temperature 97.6 F Pulse Rate 104 H 97 H 92 H Respiratory Rate 20 18 18 Blood Pressure 87/54 L 106/55 L 107/56 L 02/19/18 23:15 02/19/18 23:47 02/20/18 03:00 Temperature 98.3 F Pulse Rate 56 L 90 Respiratory Rate 18 18 16 Blood Pressure 98/62 L 99/59 L 02/20/18 04:00 02/20/18 05:00 02/20/18 07:40 Temperature 98.4 F 97.8 F Pulse Rate 67 16 L 94 H Respiratory Rate 18 16 21 Blood Pressure 109/64 97/52 L Result Diagrams: 02/19/18 20:52 Objective Remarks: GENERAL: Well-nourished, well-developed patient. CARDIOVASCULAR: Regular rate and rhythm without murmurs, gallops, or rubs. RESPIRATORY: Breath sounds equal bilaterally. No accessory muscle use. ABDOMEN/GI: Abdomen soft, non-tender, bowel sounds present. Incision: Clean, dry and intact. Fundus: Firm, minimally tender at umbilicus. GENITOURINARY: Light to moderate bleeding. EXTREMITIES: No cyanosis or edema, non-tender, without signs of DVT. Medications and IVs: Active Medications Citric Acid/Sodium Citrate (Sodium Citrate/Citric Acid Liq) 30 ml PO COMIC BOOK DESIGNER ANTHONY Stop: 02/23/18 20:44 Last Admin: 02/19/18 21:18 Dose: 30 ml Diphenhydramine HCl (Benadryl Inj) 25 mg IV.PUSH Q6H PRN PRN Reason: MILD TO MODERATE ITCHING Stop: 02/21/18 21:29 Diphenhydramine HCl (Benadryl) 50 mg PO Q6H PRN PRN Reason: MILD TO MODERATE ITCHING Stop: 02/21/18 21:29 Diphtheria/Pertussis/Tetanus Vacc (Boostrix Vaccine Inj) 0.5 ml IM .ONCE ONE Stop: 02/20/18 16:01 Cefazolin Sodium 2,000 mg/ (Sodium Chloride) 100 mls @ 200 mls/hr IV.SIG COMIC BOOK DESIGNER [facility] Stop: 02/23/18 20:59 Lactated Ringer's (Lr 1000 Ml Inj) 1,000 mls @ 100 mls/hr IV.CONT .Q10H [facility] Stop: 02/20/18 21:44 Last Admin: 02/20/18 01:29 Dose: 100 mls/hr Oxytocin (Pitocin 30 Units/Ns 500 Ml Premix) 30 units in 500 mls @ 100 mls/hr IV.SIG UNSCH PRN PRN Reason: Heavy bleeding Cefazolin Sodium 2,000 mg/ (Sodium Chloride) 100 mls @ 100 mls/hr IV.SIG Q8H [facility] Stop: 02/20/18 14:59 Last Admin: 02/20/18 06:02 Dose: 100 mls/hr Measles/Mumps/Rubella Vaccine Live (M-M-R Ii Vaccine Inj) 0.5 ml SQ .ONCE ONE Stop: 02/20/18 16:01 Miscellaneous Information (Misc Nursing Information) 1 each OTHER UNSCH PRN PRN Reason: SEE LABEL COMMENTS Stop: 02/21/18 21:29 Miscellaneous Information (Misc Nursing Information) 1 each OTHER UNSCH PRN PRN Reason: SEE LABEL COMMENTS Stop: 02/21/18 21:29 Naloxone HCl (Narcan Inj) 0.4 mg IV.PUSH UNSCH PRN PRN Reason: Resp rate < 10 Naloxone HCl (Narcan Inj) 0.4 mg IV.PUSH UNSCH PRN PRN Reason: SEE LABEL COMMENTS Stop: 02/21/18 21:29 Oxycodone/Acetaminophen (Percocet 5/325 Mg) 2 tab PO Q4H PRN PRN Reason: PAIN SCALE 6 TO 10 Oxycodone/Acetaminophen (Percocet 5/325 Mg) 1 tab PO Q4H PRN PRN Reason: PAIN SCALE 3 TO 5 Last Admin: 02/20/18 06:07 Dose: 1 tab Pat Own Med: [id number]- Ferrous Fumarate- Folic Acid Tablets 0 each PO DAILY [facility] Sodium Chloride (Ns Flush) 2 ml IV.FLUSH BID ANTHONY Last Admin: 02/19/18 22:59 Dose: Not Given Sodium Chloride (Ns Flush) 2 ml IV.FLUSH UNSCH PRN PRN Reason: FLUSH AFTER USING IV ACCESS Assessment and Plan - Diagnosis (1) delivery delivered Code(s): O82 - Encounter for delivery without indication Status: Acute (2) 38 weeks gestation of Code(s): Z3A.38 - 38 weeks gestation of Status: Resolved (3) Inclusion cyst Code(s): L72.0 - Epidermal cyst Status: Acute - Plan Patient is a 27-year-old delivered at 38 weeks and 1 day. Patient is day 1 after repeat c/s. During the c/s, an inclusion cyst was noted along the pre-existing uterine incision on right. The inclusion cyst was incised and drained on the field; approximately 50 cc of non-foul smelling purulent liquid drained. Aerobic and anaerobic cultures performed. Cultures pending. Patient to remain on cefazolin for 24hrs post procedure; if patient becomes febrile, patient to remain on antibiotics until 24hr afebrile. Continue routine care. Motrin and Percocet when necessary for pain. Encourage OOB. Pelvic rest for 6 weeks; will need follow-up appointment at that time. Contraception: To discuss with OB provider. Anticipate discharge tomorrow. guillerm[facility] OB hospitalist
[2018-02-20] MEDS ORDERED: [UNRECOGNIZED DRUG - MIXTURE] PO SCH (09:00)
[2018-02-20] MEDS ORDERED: Measles/Mumps/Rubella Vaccine Inj 0.5 ML Vial SQ ONE (16:00)
[2018-02-20] MEDS ORDERED: Diphtheria/Tetanus/Pertussis Vaccine Inj 0.5 ML Syringe IM ONE (16:00)
[2018-02-21 08:11] VITALS: BP 92/60; PULSE 80; RESP 16; TEMP 98
--- NOTE | 2018-02-21 09:32 | P.PNOB ---
Subjective Post op day: 2 Interval history: Patient is a 27-year-old delivered at 38 weeks and 1 day. Patient is day 2 after repeat c/s. Patient's pain is well-controlled. Patient reports minimal bleeding. Patient reports eating and drinking with minimal nausea and some vomiting, which she associates with taking pain medication. Patient has passed gas but has not had a bowel movement. Patient denies chest pain and shortness of breath. Patient has been ambulating; she denies lower extremity pain. Patient reports desire for contraception, which she will discuss with her PCP at her first follow-up visit. Patient has decided to bottle-feed. Objective Vital Signs/I&O: Vital Signs 02/20/18 20:00 02/21/18 08:00 Temperature 98.1 F 98.0 F Pulse Rate 97 H 80 Respiratory Rate 17 16 Blood Pressure 80/47 L 92/60 L Result Diagrams: 02/21/18 09:31 Objective Remarks: GENERAL: Well-nourished, well-developed patient. CARDIOVASCULAR: Regular rate and rhythm without murmurs, gallops, or rubs. RESPIRATORY: Breath sounds equal bilaterally. No accessory muscle use. ABDOMEN/GI: Abdomen soft, non-tender, bowel sounds present. Incision: Clean, dry and intact. Fundus: Firm, non-tender at umbilicus. GENITOURINARY: Light to moderate bleeding. EXTREMITIES: No cyanosis or edema, non-tender, without signs of DVT. Medications and IVs: Active Medications Citric Acid/Sodium Citrate (Sodium Citrate/Citric Acid Liq) 30 ml PO PRIMER AND POWDER CANNING LEAD[facility] Stop: 02/23/18 20:44 Last Admin: 02/19/18 21:18 Dose: 30 ml Diphenhydramine HCl (Benadryl Inj) 25 mg IV.PUSH Q6H PRN PRN Reason: MILD TO MODERATE ITCHING Stop: 02/21/18 21:29 Diphenhydramine HCl (Benadryl) 50 mg PO Q6H PRN PRN Reason: MILD TO MODERATE ITCHING Stop: 02/21/18 21:29 Oxytocin (Pitocin 30 Units/Ns 500 Ml Premix) 30 units in 500 mls @ 100 mls/hr IV.SIG UNSCH PRN PRN Reason: Heavy bleeding Ibuprofen (Motrin) 800 mg PO Q8H PRN PRN Reason: cramping Last Admin: 02/21/18 07:42 Dose: 800 mg Miscellaneous Information ([facility] Nursing Information) 1 each OTHER UNSCH PRN PRN Reason: SEE LABEL COMMENTS Stop: 02/21/18 21:29 Miscellaneous Information (Mis Nursing Information) 1 each OTHER UNSCH PRN PRN Reason: SEE LABEL COMMENTS Stop: 02/21/18 21:29 Naloxone HCl (Narcan Inj) 0.4 mg IV.PUSH UNSCH PRN PRN Reason: Resp rate < 10 Naloxone HCl (Narcan Inj) 0.4 mg IV.PUSH UNSCH PRN PRN Reason: SEE LABEL COMMENTS Stop: 02/21/18 21:29 Oxycodone/Acetaminophen (Percocet 5/325 Mg) 2 tab PO Q4H PRN PRN Reason: PAIN SCALE 6 TO 10 Last Admin: 02/21/18 07:42 Dose: 2 tab Oxycodone/Acetaminophen (Percocet 5/325 Mg) 1 tab PO Q4H PRN PRN Reason: PAIN SCALE 3 TO 5 Last Admin: 02/20/18 06:07 Dose: 1 tab Pat Own Med: [id number]- Ferrous Fumarate- Folic Acid Tablets 0 each PO DAILY ANTHONY Sodium Chloride (Ns Flush) 2 ml IV.FLUSH BID ANTHONY Last Admin: 02/21/18 02:52 Dose: Not Given Sodium Chloride (Ns Flush) 2 ml IV.FLUSH UNSCH PRN PRN Reason: FLUSH AFTER USING IV ACCESS Assessment and Plan - Diagnosis (1) delivery delivered Code(s): O82 - Encounter for delivery without indication Status: Acute (2) 38 weeks gestation of Code(s): Z3A.38 - 38 weeks gestation of Status: Resolved (3) Inclusion cyst Code(s): L72.0 - Epidermal cyst Status: Acute - Plan Patient is a 27-year-old delivered at 38 weeks and 1 day. Patient is day 2 after repeat c/s. During the c/s, an inclusion cyst was noted along the pre-existing uterine incision on right. The inclusion cyst was incised and drained on the field; approximately 50 cc of non-foul smelling purulent liquid drained. Aerobic and anaerobic cultures performed. Cultures pending. Patient on cefazolin for 24hrs post procedure; patient afebrile, now antibiotic dc'ed. Continue routine care. Motrin and Percocet when necessary for pain. Encourage OOB. Incision check with OB provider in 1 week. Pelvic rest for 6 weeks; will need follow-up appointment at that time. Contraception: To discuss with OB provider. Anticipate discharge today per patient request. Discussed with OB hospitalist.
[2018-02-21 09:43] LABS: Baso # (Auto) 0.1 th/mm3 (0.0-0.2); Baso % (Auto) 0.3 % (0.0-2.0); Eos # (Auto) 0.1 th/mm3 (0.0-0.4); Eos % (Auto) 0.5 % (0.0-4.0); Hematocrit 28.7 % (35.0-46.0); Hemoglobin 9.5 gm/dL (11.6-15.3); Lymph # (Auto) 2.9 th/mm3 (1.0-4.8); Lymph % (Auto) 14.8 % (9.0-44.0); Mean Corpuscular Hemoglobin 29.9 pg (27.0-34.0); Mean Corpuscular Volume 90.6 fL (80.0-100.0); Mean Platelet Volume 8.8 fL (7.0-11.0); Mono # (Auto) 1.1 th/mm3 (0.0-0.9); Mono % (Auto) 5.8 % (0.0-8.0); Neut # (Auto) 15.5 th/mm3 (1.8-7.7); Neut % (Auto) 78.6 % (16.0-70.0); Platelet Count 219 th/mm3 (150-450); Red Blood Count 3.17 mil/mm3 (4.00-5.30); Red Cell Distribution Width 13.3 % (11.6-17.2); White Blood Count 19.8 th/mm3 (4.0-11.0)
[2018-02-21] MEDS ORDERED: Diphtheria/Tetanus/Pertussis Vaccine Inj 0.5 ML Syringe IM ONE (10:30)
--- NOTE | 2018-02-21 11:59 | P.PNADD ---
Addendum to Inpatient Note Reason for Addendum: Additional Documentation Additional information: Patient discharged with 3-day supply of Percocet. E-FORSCE checked. No red flags /concerns.
== END 2018-02-21 11:49 | disposition home or self-care (01) ==
LOC: HOBED 20:03 → H2E 20:52 → H1EA 21:00
PROVIDERS: ADMIT Obstetrics & Gynecology; ATTEND Obstetrics & Gynecology